=== PATIENT | female | born 1965 | race Caucasian/White ===

== ENCOUNTER 2016-10-29 11:20 | Emergency (ER) | payer MEDICAID ==
[2016-10-29 11:41] VITALS: TEMP 98.8; BMI 26.9
[2016-10-29] MEDS ORDERED: IBUPROFEN 800 MG TAB PO ONE (11:51)
--- NOTE | 2016-10-29 11:54 | EDPRACDOC ---
- General Information Chief Complaint: Back Pain Stated Complaint: LOW BACK PAIN Time Seen by Provider: 10/29/16 11:42 Information Source: Patient Mode Of Arrival: Car Home Medications: Home Medications Acetaminophen [Acetaminophen Extra Strength] 500 - 1,000 mg PO TID PRN 05/16/14 CITALOPRAM (anti-depressant) [Celexa] 10 mg PO DAILY 05/16/14 Diclofenac Sodium 75 mg PO BID 05/16/14 Ibuprofen Tablet [Motrin] 600 mg PO Q6H PRN #30 tab 05/17/14 Oxycodone Immediate Release [Oxy-Ir] 1 - 2 tab PO Q6H PRN #10 tab 05/17/14 Ketorolac Tromethamine [Toradol] 10 mg PO Q6H PRN #20 tab 10/29/16 Ondansetron [Zofran Odt] 4 mg PO Q6H PRN #20 tab.rapdis 10/29/16 Oxycodone Immediate Release [Oxycodone Immediate Release (OxyIR)] 5 mg PO Q6H PRN #20 tab 10/29/16 Tamsulosin HCl [Flomax] 0.4 mg PO DAILY #10 cap 10/29/16 Allergies/Adverse Reactions: Allergies Allergy/AdvReac Type Severity Reaction Status Date / Time No Known Allergies Allergy Verified 05/17/14 06:31 - History of Present Illness Onset: SEVERAL WEEKS HPI: PT PRESENTS WITH MID BACK PAIN THAT SHE STATES BEGAN SEVERAL WEEKS AGO. STATES IT HURTS WITH MOVEMENT OR LONG SITTING. DENIES RADIATION OF THE PAIN. STATES SHE HAS HAD SOME NAUSEA WITHOUT VOMITING. DENIES FEVER OR CHILLS. DENIES DYSURIA. Pain Location: Reports: Left, Thoracic Pain Radiates To: Reports: None Pain Caused By: Reports: Spontaneous Circumstances: Reports: Unknown Relevant History: Reports: None Currently ?: No Pain Severity: Reports: Moderate Pain Quality: Reports: Sharp, Stabbing Worsened By: Reports: Walking Associated Signs and Symptoms: Reports: Nausea ED Past Medical History - History Reviewed Yes Nurses notes reviewed and agree except as marked - Patient Medical History Respiratory History: Reports: Emphysema (MDI) Musculoskeletal History: Reports: Arthritis (NECK, RT SHOULDER) Psychological History: Reports: Depression Systemic History: Reports: Anemia (DURING ). Denies: Cancer Surgical History: Reports: Tonsillectomy/Adnoidectomy - Family Medical History Denies: Hypertension, Diabetes, Cancer, Stroke, Cardiac Disorders EDM Review of Systems - Review of Systems ROS Negative Except as Marked: Yes All systems reviewed and were negative except as marked - Physical Exam Constitutional: Alert Oriented to: Time, Person, Place Last recorded Vital Signs: Last Vital Signs Temp 98.8 F 10/29/16 11:40 Pulse 72 10/29/16 11:40 Resp 18 10/29/16 11:40 BP 128/84 10/29/16 11:40 Pulse Ox 94 10/29/16 11:40 Oxygen Pulse Oxygen Saturation 94 O2 Device Oxygen Flow Rate Fraction of Inspired Oxygen ( FIO2) - HEENT Head: Normal ( normocephalic) Eye Exam: Normal (PERRL, EOMI, Sclera white) Oropharynx: Normal (Pharynx:Moist without exudate,Gums-no swelling) Nose: No Symptoms Reported (septum midline) Neck: Normal (FROM, trachea at midline) - Respiratory/Cardiovascular Respiratory: Normal - CTA (BBS clear to auscultation without adventitious sounds ) Cardiovascular: Normal (RRR without murmur, gallop or rub) - GI Auscultation: Normal (NABS) Palpation: Normal (Soft,No rebound or guarding, non distended) Tenderness: Non tender Justin's Sign: Negative Rectal Exam: Deferred - Musculoskeletal Back: Normal (Non-Tender) Extremities: Normal (Normal tone, Pulses 2+ No cyanosis or edema, FROM) - Integumentary Skin: Normal, Warm, Dry Lymphatics: Normal (no adenopathy) - Neurologic Memory Impaired: Normal Motor Function: Normal (Normal tone, Pulses 2+ No cyanosis or edema, FROM) Cranial Nerve: Normal (CN II-X11 intact sensation, strength 5/5) Cerebellar: Normal Mood Description: Normal Perception: Normal ED Back Exam - Neurologic Motor Deficit: None Reflexes: Normal - Musculoskeletal Cervical: Normal Thoracic: Tender. negative: CVA Tenderness Lumbar: Normal Midline: Normal Paraspinous: Normal Straight Leg Raise: Negative Pelvis: Normal - Differential Diagnosis Musculoskeletal pain Decision Time to Discharge: 13:13 - Departure Disposition: Home Condition: Stable Final Diagnosis: Right kidney stone Instructions: Kidney Stones (ED) Education/Counseling Given To: Patient Education/Counseling Given Regarding: Diagnosis, Treatment, Prognosis, Follow Up Referrals: Paulino,Cally, [employer] [Primary Care Provider] - One Week Benito Herrera MD [Staff Physician] - One Week Prescriptions: Ketorolac Tromethamine [Toradol] 10 mg PO Q6H PRN #20 tab PRN Reason: Pain Ondansetron [Zofran Odt] 4 mg PO Q6H PRN #20 tab.rapdis PRN Reason: Nausea/Vomiting Oxycodone Immediate Release [Oxycodone Immediate Release (OxyIR)] 5 mg PO Q6H PRN #20 tab PRN Reason: Pain Tamsulosin HCl [Flomax] 0.4 mg PO DAILY #10 cap Additional Instructions: FOLLOW UP WITH PCP NEXT WEEK. FOLLOW UP WITH UROLOGIST IF PAIN PERSIST. RETURN TO THE ED FOR WORSENING SYMPTOMS OR CONCERNS
[2016-10-29 12:15] LABS: LEUKOCYTES/URINE NEG (NEGATIVE); NITRITE/URINE NEG (NEGATIVE); RBC/URINE 0-2 (0-5); URINE OCCULT BLOOD NEG (NEG/TRACE); WBC/URINE 0-2 (0-5)
--- NOTE | 2016-10-29 12:59 | DIRPT ---
CLINICAL DATA: Back pain for several weeks. EXAM: ABDOMEN - 2 VIEW COMPARISON: None. FINDINGS: The bowel gas pattern is normal. There is no evidence of free air. Right renal calculus is noted. Calcification is seen in right pelvis most consistent with phlebolith. IMPRESSION: Right renal calculus is noted. No evidence of bowel obstruction or ileus. Electronically Signed By: Saw Carpio Jr, M.D. On: 10/29/2016 12:57
[2016-10-29 13:57] VITALS: BP 122/79; PULSE 66
== END 2016-10-29 13:26 | disposition home or self-care (01) ==
LOC: EDMC 11:20
DX: N20.0 Calculus of kidney (principal)
CPT/HCPCS: 74020; 81001; 99283; J3490